=== PATIENT | male | born 1945 | race Caucasian/White ===

== ENCOUNTER 2021-11-12 14:23 | Observation (INO) ==
--- NOTE | 2021-11-12 15:02 | Emergency Department Note ---
Impression & Plan Pulmonary embolism, Sinus tachycardia, Hypertension, Bilateral numbness and tingling of arms and legs ED Provider Note NAME: DAINA STOVER AGE: 76 SEX: M : 1945 ARRIVES VIA: Walk-In INFORMANT: Patient, ED PROVIDER(S): Cristobal Tan DO CHIEF COMPLAINT: Generalized weakness HPI: The patient is a 76-year-old male who presented to the emergency department for an evaluation of generalized weakness. The patient started to describe problems with ambulation. He states has been having problems with his balance for many years but since the last 4 weeks has been noticing tingling in his hands and feet. He notices dysesthesias in both lower extremities. He has had no chest pain or difficulty breathing. He does complain of generalized weakness which sometimes worsen with exertion. He has a remote history of colon cancer and has a history of an ostomy. He denies having any black or bloody stool. He states that he does not have a history of venous thromboembolic disease. He notices no swelling in his legs. He does not have a doctor locally and takes no medications although he thinks he was diagnosed with hypertension at one time. He does not drink alcohol often. ROS: See above HPI for pertinent positives & negatives. A total of 10 systems reviewed and were otherwise negative. PAST MEDICAL HISTORY: See Below PAST SURGICAL HISTORY: See Below FAMILY HISTORY: See Below SOCIAL HISTORY: See Below HOME MEDICATIONS: See Below ALLERGIES: See Below VITALS: See Below PHYSICAL EXAMINATION: GENERAL: The patient is awake and alert. He is somewhat anxious appearing. EYES: The conjunctivae are clear. The pupils are round and reactive. EARS, NOSE, MOUTH AND THROAT: The nose is without any evidence of any deformity. NECK: The neck is nontender and supple. RESPIRATORY: Diminished breath sounds are noted in the left lung field. There is no tachypnea or conversational dyspnea. CARDIOVASCULAR: Tachycardic rate with regular rhythm was noted. There is no definite murmur. GASTROINTESTINAL: The abdomen is soft. Abdomen is nontender. BACK: No midline tenderness or or step-off noted range of motion in flexion extension as well as rotation no signs of muscle spasm noted MUSCULOSKELETAL/EXTREMITIES: There is no evidence of gross deformity full range of motion is noted in the hips and shoulders. SKIN: Skin was warm and dry. There is no significant edema. Pulses were symm etric in both feet NEUROLOGIC: Patient is awake alert and oriented x3. Patient is tremulous in arpita th upper extremities but chip washer strengths are symmetric. He is able to hold each leg off the bed for greater than 5 seconds. MEDICAL DECISION MAKING: The patient is a 76-year-old male who presented to the emergency department for an evaluation of lower extremity tingling and for tachycardia. The patient does not have a family doctor locally. He does have a remote history of colon cancer which was treated with ostomy. I discussed patient's laboratory and radiographic studies with him. He was found to have persistent tachycardia. For this reason CT of the chest was obtained. This appears to be consistent with chronic pulmonary emboli. He has no recollection of having this diagnosis. I discussed the patient's laboratory and radiographic studies with him. He has no primary care physician. I was concerned with his other abnormalities includi ng hypertension and tachycardia. For this reason I discussed patient's condition with the on-call [facility]. Triage Nursing notes reviewed. Prior medical records reviewed Vital Signs: reviewed and remarkable for tachycardia and hypertension. Differential diagnosis: Infection, dehydration, metabolic abnormality, hypo/hyperglycemia, electrolyte disturbance, anemia, hypoxia, cardiac sources, intracerebral event, toxicologic, neurologic, as well as other pathologies. ER treatment provided: See below Diagnostics interpreted by me: ECG: EKG was obtained in the emergency department. My interpretation is sinus tachycardia 121 bpm. There is no ectopy. There is no acute ST segment abnormalities noted. No previous tracing was available. Cardiac Monitoring: An order was placed for continuous cardiac monitoring. The monitor shows a rate of 102 bpm with sinus rhythm. Laboratory studies: As stated above and show below. Imaging studies: See below Consultation(s): I discussed this case with Hayder who is on for the [facility]. Past Med/Surg History Medical History Colon cancer Hypertension Parkinson disease Surgical History History of colostomy Social History Smoking Status: Never smoker Preferred Language: Thai Feels Safe at Home: Yes Allergies Allergies Allergy/AdvReac Type Severity Reaction Status Date / Time No Known Allergies Allergy Unverified 11/12/21 17:20 Home Meds Home Medications Medication Instructions Recorded Confirmed multivitamin (Multiple Vitamins) 1 tab PO DAILY 11/12/21 11/12/21 zinc gluconate 100 mg tablet 200 mg PO DAILY 11/12/21 11/12/21 Results & Data (ED) Vital Signs Vital Signs - 24 hr 11/12/21 14:24 11/12/21 14:25 11/12/21 15:07 Temperature 36.5 C Temperature Source Temporal Artery Scan Pulse Rate 139 H Respiratory Rate 14 18 Respiratory Effort / Characteristics Non-Labored Respiratory Depth Normal Normal Respiratory Pattern Regular Blood Pressure 200/121 H Blood Pressure Mean 147 Pulse Oximetry 98 96 Oxygen Delivery Method Room Air Room Air Sepsis Recent Fever Within 48 Hours No Sepsis New/Unexplained Change in Mental Status No Sepsis Action Taken by Nursing No Action Required Home Medications Current Medication List: was personally reviewed by me Laboratory Data Attestation: I reviewed the patient's lab results. Result diagrams: 11/12/21 15:30 11/12/21 15:30 Lab Results 11/12/21 11/12/21 11/12/21 Range/Units 15:30 15:30 15:30 WBC 8.66 (4.8-10.8) K/uL RBC 4.87 (4.7-6.1) M/uL Hgb 15.9 (14.0-18.0) g/dL Hct 44.5 (42-52) % MCV 91.4 (80-100) fL MCH 32.6 (25-34) pg MCHC 35.7 (32-36) g/dL RDW Std Deviation 42.4 (36.4-46.3) fL RDW Coeff of Steffi 12.6 (11.5-14.5) % Plt Count 230 (130-400) K/uL MPV 11.6 H (7.4-10.4) fL Immature Gran % (Auto) 0.2 % Neut % (Auto) 76.5 % Lymph % (Auto) 15.0 % Toombs % (Auto) 7.4 % Eos % (Auto) 0.6 % Baso % (Auto) 0.3 % Neut # (Auto) 6.62 H (1.4-6.5) K/uL Lymph # (Auto) 1.30 (1.2-3.4) K/uL Toombs # (Auto) 0.64 H (0.11-0.59) K/uL Eos # (Auto) 0.05 (0-0.5) K/uL Baso # (Auto) 0.03 (0-0.2) K/uL Immature Gran # (Auto) 0.02 (0.00-0.02) K/uL PT 10.9 (9.0-12.0) Seconds INR 1.0 (0.9-1.1) APTT 25.5 (21.0-31.0) Seconds PTT Ratio 0.9 D-Dimer (0-500) ug/L FEU Sodium (136-145) mmol/L Potassium (3.5-5.1) mmol/L Chloride (98-107) mmol/L Carbon Dioxide (21-32) mmol/L Anion Gap (3-11) BUN (6-23) mg/dl Creatinine (0.6-1.4) mg/dl Est Cr Clr Drug Dosing ml/min Est GFR ( Amer) ml/min Est GFR (Non-Af Amer) ml/min BUN/Creatinine Ratio (10-20) Glucose (70-99(Fasting)) mg/dl Calcium (8.5-10.1) mg/dl Magnesium (1.7-2.4) mg/dl Total Bilirubin (0.2-1.0) mg/dl AST (13-39) U/L ALT (7-52) U/L Alkaline Phosphatase (34-104) U/L Total Creatine Kinase (30-223) U/L Troponin I High Sens 8.6 (0-20) pg/ml Total Protein (6.0-8.3) gm/dl Albumin (3.4-5.0) gm/dl Globulin (2.5-4.0) gm/dl Albumin/Globulin Ratio (0.9-2) TSH (0.300-4.500) uIu/ml Free T4 (0.61-1.60) ng/dl 11/12/21 11/12/21 11/12/21 Range/Units 15:30 15:30 15:30 WBC (4.8-10.8) K/uL RBC (4.7-6.1) M/uL Hgb (14.0-18.0) g/dL Hct (42-52) % MCV (80-100) fL MCH (25-34) pg MCHC (32-36) g/dL RDW Std Deviation (36.4-46.3) fL RDW Coeff of Steffi (11.5-14.5) % Plt Count (130-400) K/uL MPV (7.4-10.4) fL Immature Gran % (Auto) % Neut % (Auto) % Lymph % (Auto) % Toombs % (Auto) % Eos % (Auto) % Baso % (Auto) % Neut # (Auto) (1.4-6.5) K/uL Lymph # (Auto) (1.2-3.4) K/uL Toombs # (Auto) (0.11-0.59) K/uL Eos # (Auto) (0-0.5) K/uL Baso # (Auto) (0-0.2) K/uL Immature Gran # (Auto) (0.00-0.02) K/uL PT (9.0-12.0) Seconds INR (0.9-1.1) APTT (21.0-31.0) Seconds PTT Ratio D-Dimer 260 (0-500) ug/L FEU Sodium 134 L (136-145) mmol/L Potassium 3.9 (3.5-5.1) mmol/L Chloride 100 (98-107) mmol/L Carbon Dioxide 22 (21-32) mmol/L Anion Gap 12 H (3-11) BUN 12 (6-23) mg/dl Creatinine 0.94 (0.6-1.4) mg/dl Est Cr Clr Drug Dosing 72.1 ml/min Est GFR ( Amer) 91.6 ml/min Est GFR (Non-Af Amer) 79.0 ml/min BUN/Creatinine Ratio 12.8 (10-20) Glucose 280 H (70-99(Fasting)) mg/dl Calcium 9.7 (8.5-10.1) mg/dl Magnesium 1.8 (1.7-2.4) mg/dl Total Bilirubin 1.0 (0.2-1.0) mg/dl AST 76 H (13-39) U/L ALT 90 H (7-52) U/L Alkaline Phosphatase 124 H (34-104) U/L Total Creatine Kinase 54 (30-223) U/L Troponin I High Sens (0-20) pg/ml Total Protein 7.3 (6.0-8.3) gm/dl Albumin 4.2 (3.4-5.0) gm/dl Globulin 3.1 (2.5-4.0) gm/dl Albumin/Globulin Ratio 1.4 (0.9-2) TSH 5.594 H (0.300-4.500) uIu/ml Free T4 0.87 (0.61-1.60) ng/dl Administered Medications Discontinued Medications Ioversol (Optiray 320 125ml) 118 ml IV ONCE ONE Stop: 11/12/21 17:41 Last Admin: 11/12/21 17:41 Dose: 118 ml Documented by: [id number] Lorazepam (Lorazepam 2 Mg/1 Ml Vial) 1 mg IV NOW STA Stop: 11/12/21 15:08 Last Admin: 11/12/21 15:51 Dose: 1 mg Documented by: [id number] Imaging Data Radiologist's Impression: Chest X-Ray 11/12/21 15:07 XR chest 1V portable HISTORY: 76 years-old Male weakness acute weakness COMPARISON: None TECHNIQUE: Portable AP view of the chest FINDINGS: The cardiac silhouette is mildly enlarged. Hiatal hernia. No pneumothorax, pleural effusion, airspace consolidation or overt pulmonary edema. Degenerative changes of the shoulders and spine. IMPRESSION: No acute process. ACT 112: Negative or not required by law. The above report was generated using voice recognition software. It may contain grammatical, syntax or spelling errors. Electronically signed by: Jony Asher M.D. 11/12/2021 3:18 PM Abdomen/Pelvis CT 11/12/21 16:56 CT OF THE ABDOMEN AND PELVIS WITH CONTRAST CLINICAL HISTORY: elevated LFTS COMPARISON STUDY: None. TECHNIQUE: Following IV administration of 118 mL of Optiray, axial images of the abdomen and pelvis were obtained from the lung bases to the proximal femurs. Images were reviewed in the axial, sagittal, and coronal planes. IV contrast was administered without complication. Automated exposure control was utilized for the study. A dose lowering technique was utilized adhering to the principles of ALARA. CT DOSE: 2766.72 mGy.cm FINDINGS: No pneumatosis, free air or portal venous gas is present. No suspicious hepatic lesions are present. Segment 8 hepatic calcifications are present. There is no biliary or pancreatic ductal dilatation. No peripancreatic or pericholecystic infiltration is present. There is possible hepatic steatosis. 1 cm hypodense splenic lesion is likely benign. A 1.7 cm lesion within the midpole of the right kidney measures above water attenuation although probably reflects a cyst. There is no hydronephrosis. Major vasculature is patent. There is no ascites. Postoperative findings from a distal colonic and rectal resection are noted with a descending colostomy. Parastomal hernia contains multiple small bowel loops without resultant bowel obstruction. Mild asymmetric wall thickening of the left lateral bladder wall is present. There is suspected hypertrophy of the median lobe of the prostate. No fluid collection is suggest an abscess. The appendix is normal. There is a possible 3 mm left renal calculus. There are no ureteral calculi and there is no hydronephrosis. IMPRESSION: 1. No acute process within the abdomen or pelvis. 2. Status post distal colonic and rectal resection with descending colostomy. Parastomal hernia contains multiple small bowel loops without resultant bowel obstruction. 3. Mild asymmetric left lateral bladder wall thickening. This could be correlat ed with urinalysis and urine cytology. Cystoscopy could be obtained as indicated. 4. ACT 112: Negative or not required by law. Electronically signed by: Alexi Chang M.D. 11/12/2021 6:[address] 11/12/21 16:56 CT OF THE CERVICAL SPINE WITHOUT CONTRAST CLINICAL HISTORY: off balance COMPARISON STUDY: No previous studies for comparison. TECHNIQUE: Helical axial images of the cervical spine were obtained without IV contrast. Sagittal and coronal reconstructions were viewed. Automated exposure control was utilized for the study. A dose lowering technique was utilized adhering to the principles of ALARA. FINDINGS: Alignment of the cervical spine is anatomic. Vertebral body heights are maintained. No acute cervical spine fracture or subluxation is present. There is no prevertebral edema. Facet joints are intact. Moderate disc space narrowing is noted at C6-C7. Several thyroid nodules are incidentally noted. IMPRESSION: 1. No acute cervical spine fracture or subluxation. 2. Moderate multilevel degenerative disc disease, most pronounced at C6-C7. Suboptimal evaluation of the central canal neural foramen given CT technique. ACT 112: Negative or not required by law. Electronically signed by: Alexi Chang M.D. 11/12/2021 5:48 PM Chest CTA 11/12/21 16:56 CT ANGIOGRAPHY OF THE CHEST, PULMONARY EMBOLUS PROTOCOL CLINICAL HISTORY: Shortness of breath. Evaluate for pulmonary embolus. COMPARISON STUDY: Chest radiograph performed earlier today. TECHNIQUE: Following IV administration of 118 mL of Optiray, helical axial images of the chest were obtained utilizing the pulmonary embolus protocol. Maximal intensity projections and sagittal and coronal reformats were viewed on an independent 3D workstation. IV contrast was administered without c omplication. Automated exposure control was utilized for the study. A dose lowering technique was utilized adhering to the principles of ALARA. FINDINGS: Several linear filling defects are identified within the right lower lobe pulmonary arteries. There are also linear filling defects within the distal right pulmonary artery. These favor chronic pulmonary emboli. No evidence for acute pulmonary emboli. Mild cardiomegaly is noted. There is no thoracic aortic dissection. No enlarged thoracic lymph nodes are present. There is no pericardial effusion. No pneumothorax or pleural effusion is present. There is no consolidation to suggest pneumonia. Mild elevation of the right hemidiaphragm is noted. Adjacent airspace opacity reflects atelectasis. IMPRESSION: 1. Several small linear filling defects within right-sided pulmonary arteries which favor chronic pulmonary emboli. No convincing evidence for acute pulmonary emboli. 2. Mild cardiomegaly. 3. No consolidation to suggest pneumonia. ACT 112: Negative or not required by law. Electronically signed by: Alexi Chang M.D. 11/12/2021 5:[address] 11/12/21 16:56 CT OF THE HEAD WITHOUT CONTRAST CLINICAL HISTORY: off balance COMPARISON STUDY: No previous studies for comparison. TECHNIQUE: Helical axial images of the head were obtained without IV contrast. Automated exposure control was utilized for the study. A dose lowering technique was utilized adhering to the principles of ALARA. FINDINGS: No acute intracranial hemorrhage, midline shift or mass effect is present. 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 White matter hypodensity suggests small vessel disease. The ventricular system is unremarkable. The basal cisterns are patent. No extra-axial collections are present. There are no findings to suggest acute dural sinus thrombosis or acute territorial infarct. No significant calvarial abnormalities are present. Visualized portions of the sinuses and mastoid air cells are clear. IMPRESSION: No acute intracranial findings. ACT 112: Negative or not required by law. Electronically signed by: Alexi Chang M.D. 11/12/2021 5:45 PM Discharge Plan Visit Data Chief Complaint: Leg Weakness, Bilateral Stated Complaint: LEGS AND FEET AND HANDS ARE TINGLING ED Provider: Cristobal Tan Discharge Problem: Pulmonary embolism, Sinus tachycardia, Hypertension, Bilateral numbness and tingling of arms and legs Patient Disposition: Being Evaluated by Hospitalist Forms Stand Alone Forms: [facility] Prescriptions Prescriptions: No Action multivitamin [Multiple Vitamins] Tablet 1 tab PO DAILY RF: 0 zinc gluconate [Zinc Natural] 100 mg Tablet 200 mg PO DAILY RF: 0 Referrals Referrals: PCP,NO [Primary Care Provider] -
[2021-11-12] MEDS ORDERED: LORazepam 2 MG/1 ML VIAL IV STA (15:07)
--- NOTE | 2021-11-12 15:20 | XRay Report ---
XR chest 1V portable HISTORY: 76 years-old Male weakness acute weakness COMPARISON: None TECHNIQUE: Portable AP view of the chest FINDINGS: The cardiac silhouette is mildly enlarged. Hiatal hernia. No pneumothorax, pleural effusion, airspace consolidation or overt pulmonary edema. Degenerative changes of the shoulders and spine. IMPRESSION: No acute process. ACT 112: Negative or not required by law. The above report was generated using voice recognition software. It may contain grammatical, syntax o r spelling errors. Electronically signed by: Jony Asher M.D. 11/12/2021 3:18 PM
[2021-11-12 15:56] LABS: Basophils # (auto) 0.03 K/uL (0-0.2); Basophils % (auto) 0.3 %; Eosinophils # (auto) 0.05 K/uL (0-0.5); Eosinophils % (auto) 0.6 %; Hematocrit (blood only) 44.5 % (42-52); Hemoglobin 15.9 g/dL (14.0-18.0); Immature Granulocytes # (auto) 0.02 K/uL (0.00-0.02); Immature Granulocytes % (auto) 0.2 %; Mean Corpuscular Hemoglobin 32.6 pg (25-34); Mean Corpuscular Hgb Conc 35.7 g/dL (32-36); Mean Corpuscular Volume 91.4 fL (80-100); Mean Platelet Volume 11.6 fL (7.4-10.4); Monocytes # (auto) 0.64 K/uL (0.11-0.59); Monocytes % (auto) 7.4 %; Neutrophils # (auto) 6.62 K/uL (1.4-6.5); Neutrophils % (auto) 76.5 %; Platelet Count 230 K/uL (130-400); RDW Coefficient of Variation 12.6 % (11.5-14.5); RDW Standard Deviation 42.4 fL (36.4-46.3); Red Blood Count 4.87 M/uL (4.7-6.1); White Blood Count 8.66 K/uL (4.8-10.8)
[2021-11-12 16:14] LABS: Partial Thromboplastin Ratio 0.9; Partial Thromboplastin Time 25.5 Seconds (21.0-31.0); Prothrombin Time 10.9 Seconds (9.0-12.0)
[2021-11-12 16:17] LABS: D Dimer 260 ug/L FEU (0-500)
[2021-11-12 16:19] LABS: Albumin Globulin Ratio 1.4 (0.9-2); Albumin Level 4.2 gm/dl (3.4-5.0); BUN Creatinine Ratio 12.8 (10-20); Calcium 9.7 mg/dl (8.5-10.1); Creatinine Clr Calc Pharmacy 72.1 ml/min; Est GFR (African American) 91.6 ml/min; Globulin 3.1 gm/dl (2.5-4.0); Magnesium 1.8 mg/dl (1.7-2.4); Potassium 3.9 mmol/L (3.5-5.1); Total Protein 7.3 gm/dl (6.0-8.3)
[2021-11-12 16:32] LABS: Thyroid Stimulating Hormone 5.594 uIu/ml (0.300-4.500)
[2021-11-12 17:15] LABS: T4 Free Thyroxine 0.87 ng/dl (0.61-1.60)
[2021-11-12] MEDS ORDERED: OPTIRAY 320 125ml IV ONE (17:40)
--- NOTE | 2021-11-12 17:46 | CT Scan Report ---
CT OF THE HEAD WITHOUT CONTRAST CLINICAL HISTORY: off balance COMPARISON STUDY: No previous studies for comparison. TECHNIQUE: Helical axial images of the head were obtained without IV contrast. Automated exposure con trol was utilized for the study. A dose lowering technique was utilized adhering to the principles o f ALARA. FINDINGS: No acute intracranial hemorrhage, midline shift or mass effect is present. Suspected old la cunar infarct within left basal ganglia is present. White matter hypodensity suggests small vessel di sease. The ventricular system is unremarkable. The basal cisterns are patent. No extra-axial collecti ons are present. There are no findings to suggest acute dural sinus thrombosis or acute territorial i nfarct. No significant calvarial abnormalities are present. Visualized portions of the sinuses and ma stoid air cells are clear. IMPRESSION: No acute intracranial findings. ACT 112: Negative or not required by law. Electronically signed by: Alexi Chang M.D. 11/12/2021 5:45 PM
--- NOTE | 2021-11-12 17:50 | CT Scan Report ---
CT OF THE CERVICAL SPINE WITHOUT CONTRAST CLINICAL HISTORY: off balance COMPARISON STUDY: No previous studies for comparison. TECHNIQUE: Helical axial images of the cervical spine were obtained without IV contrast. Sagittal a nd coronal reconstructions were viewed. Automated exposure control was utilized for the study. A do se lowering technique was utilized adhering to the principles of ALARA. FINDINGS: Alignment of the cervical spine is anatomic. Vertebral body heights are maintained. No acut e cervical spine fracture or subluxation is present. There is no prevertebral edema. Facet joints are intact. Moderate disc space narrowing is noted at C6-C7. Several thyroid nodules are incidentally n oted. IMPRESSION: 1. No acute cervical spine fracture or subluxation. 2. Moderate multilevel degenerative disc disease, most pronounced at C6-C7. Suboptimal evaluation of the central canal neural foramen given CT technique. ACT 112: Negative or not required by law. Electronically signed by: Alexi Chang M.D. 11/12/2021 5:48 PM
--- NOTE | 2021-11-12 17:58 | CT Scan Report ---
CT ANGIOGRAPHY OF THE CHEST, PULMONARY EMBOLUS PROTOCOL CLINICAL HISTORY: Shortness of breath. Evaluate for pulmonary embolus. COMPARISON STUDY: Chest radiograph performed earlier today. TECHNIQUE: Following IV administration of 118 mL of Optiray, helical axial images of the chest were o btained utilizing the pulmonary embolus protocol. Maximal intensity projections and sagittal and cor onal reformats were viewed on an independent 3D workstation. IV contrast was administered without co mplication. Automated exposure control was utilized for the study. A dose lowering technique was ut ilized adhering to the principles of ALARA. FINDINGS: Several linear filling defects are identified within the right lower lobe pulmonary arteri es. There are also linear filling defects within the distal right pulmonary artery. These favor chron ic pulmonary emboli. No evidence for acute pulmonary emboli. Mild cardiomegaly is noted. There is no thoracic aortic dissection. No enlarged thoracic lymph nodes are present. There is no pericardial eff usion. No pneumothorax or pleural effusion is present. There is no consolidation to suggest pneumonia . Mild elevation of the right hemidiaphragm is noted. Adjacent airspace opacity reflects atelectasis. IMPRESSION: 1. Several small linear filling defects within right-sided pulmonary arteries which favor chronic pul monary emboli. No convincing evidence for acute pulmonary emboli. 2. Mild cardiomegaly. 3. No consolidation to suggest pneumonia. ACT 112: Negative or not required by law. Electronically signed by: Alexi Chang M.D. 11/12/2021 5:56 PM
--- NOTE | 2021-11-12 18:10 | CT Scan Report ---
CT OF THE ABDOMEN AND PELVIS WITH CONTRAST CLINICAL HISTORY: elevated LFTS COMPARISON STUDY: None. TECHNIQUE: Following IV administration of 118 mL of Optiray, axial images of the abdomen and pelvis w ere obtained from the lung bases to the proximal femurs. Images were reviewed in the axial, sagittal, and coronal planes. IV contrast was administered without complication. Automated exposure control w as utilized for the study. A dose lowering technique was utilized adhering to the principles of ALAR Siri. CT DOSE: 2766.72 mGy.cm FINDINGS: No pneumatosis, free air or portal venous gas is present. No suspicious hepatic lesions are present. Segment 8 hepatic calcifications are present. There is no biliary or pancreatic ductal dila tation. No peripancreatic or pericholecystic infiltration is present. There is possible hepatic steat osis. 1 cm hypodense splenic lesion is likely benign. A 1.7 cm lesion within the midpole of the right kidney measures above water attenuation although probably reflects a cyst. There is no hydronephrosi s. Major vasculature is patent. There is no ascites. Postoperative findings from a distal colonic and rectal resection are noted with a descending colostomy. Parastomal hernia contains multiple small arpita wel loops without resultant bowel obstruction. Mild asymmetric wall thickening of the left lateral bl adder wall is present. There is suspected hypertrophy of the median lobe of the prostate. No fluid co llection is suggest an abscess. The appendix is normal. There is a possible 3 mm left renal calculus. There are no ureteral calculi and there is no hydronephrosis. IMPRESSION: 1. No acute process within the abdomen or pelvis. 2. Status post distal colonic and rectal resection with descending colostomy. Parastomal hernia conta ins multiple small bowel loops without resultant bowel obstruction. 3. Mild asymmetric left lateral bladder wall thickening. This could be correlated with urinalysis and urine cytology. Cystoscopy could be obtained as indicated. 4. ACT 112: Negative or not required by law. Electronically signed by: Alexi Chang M.D. 11/12/2021 6:08 PM
[2021-11-12] MEDS ORDERED: APIXABAN 5 MG TABLET PO STA (19:25)
[2021-11-12] MEDS ORDERED: amLODIPine BESYLATE 5 MG TAB PO ONE (19:38)
--- NOTE | 2021-11-12 19:44 | History & Physical Report ---
Date of Service November 12, 2021 Assessment & Plan (1) Pulmonary embolism: Plan: Presented with hypertension and tachycardia - filling defect likely chronic PE- patient unsure of when this would have occurred - will send hypercoag panel although without family hx and age- this is likely low yield - CT chest without any enlarged lymph nodes or nodules - Abd and pelvis without masses- will send urine cytology with thickened bladder eval for bladder ca - further workup for cancer screening - venous duplex of the lower extremity - Will start on Apixaban 10mg PO x1 now then BID daily (2) Elevated random blood glucose level: Plan: Withoug diagnosis of DM that is known - will start on sliding scale insulin overnight with aspart - HGB A1c in morning - will likely need therapy initiated (3) Sinus tachycardia: Plan: Likely secondary to #1- declines with rest - follow - ECHO in morning to evaluate LVH with significant untreated hypertension - Compensatory likely at this time (4) Hypertension: Plan: Uncontrolled with unkown history - will initiate amlodopine 5mg PO now and in am - evaluate with ECHO - lipid panel - HGB A1 c - adjust therapy based on risks disease modification needs (5) Parkinson disease: Plan: Patient states diagnosed about 10 years ago - will need neurologist as outpatient can consider inpatient consultation (6) Bilateral numbness and tingling of arms and legs: Plan: Multiple etiologies at this time to include- lyme, diabetic neuropathy, b12 deficiency, copper deficiency (takes zinc supplementation), PVD/PAD or other - CT scan of head negative - cervical imaging negative - no back pain or weakness of the lower extremities - TSH 5.5 (7) Elevated liver enzymes: Plan: Unsure of etiology at this time - AST/ALT/ALkPO4 elevated with normal bilirubin and normal CKand lipase - CT abd/pelvis and normal biliary duct - 8 liver calcifications noted - will send anaplasmosis - trend (8) Colon cancer: Plan: History of with colostomy- ~ 17 years ago - has not had any follow up or screenings completed (9) Enlarged prostate: Plan: Noted on CT pelvis - PSA in morning - Urine cytology as above - treatment and referral pending above History of Present Illness Primary Care Provider: NO PCP 76 YOM with past medical history of: Colon Cancer with colostomy -17 years ago, Parkinson's disease. Patient moved to the area to retire and go fishing. He has not set up any PCP care. He comes in to the EMD today for complaints of burning to the soles of his feet, and difficulty with walking, and tingling in his finger tips. In the EMD he was noted to be hypertensive and tachycardic and with his history of colon cancer and above symptoms the patient had CTA of the chest performed, CT abdomen and pelvis, CXR, routine blood work done. He was incidentally found to have filling defect right pulmonary artery with chronic PE, and elevated LFTs as well as elevated glucose. The patient denies any history of chest pain or difficulty breathing. His feet pain have been ongoing for the past 4 weeks with not resolution and also noting increase in cramping pain in his calves. He reports that he used to be on some medication for his Parkinson's disease but hasn't been on it in years. He also has a form from [employer] to be filled out. He also reports that he used to be on blood pressure medication but also can't remember what that is. He does not remember the last time he followed up with GI and reports never having a EGD. Patient will be admitted to start his overall general medical care as well as find a PCP and Neurologist. COVID test on admission is: NEGATIVE Allergies Allergy/AdvReac Type Severity Reaction Status Date / Time No Known Allergies Allergy Unverified 11/12/21 17:20 Home Medications Medication Instructions Recorded Confirmed Type multivitamin (Multiple Vitamins) 1 tab PO DAILY 11/12/21 11/12/21 History zinc gluconate 100 mg tablet 200 mg PO DAILY 11/12/21 11/12/21 History Past Med/Surg History Medical History (Updated 11/13/21 @ 08:52 by Cale Vasquez DO) Colon cancer Elevated random blood glucose level Hypertension Parkinson disease Surgical History History of colostomy Family History (Updated 11/12/21 @ 19:56 by VERONICA Farrell) Other Colorectal cancer Coronary heart disease Diabetes Dyslipidemia Denies family history of Deep vein thrombosis Social History Smoking Status: Never smoker Hx Alcohol Use: No Hx Substance Use: No Preferred Language: Botswanan Communication Ability: Effective Program Manager Required: No Beliefs That Will Affect Care: None Current Living Situation: Alone Current Living Situation Comment: alone Other Information That Helps Us Care for You: No Feels Safe at Home: Yes Assistive Devices: None Review of Systems Review of Systems: REVIEW OF SYSTEMS: Constitutional: No fever, sweats or chills Eyes: No diplopia, no worsening or blurred vision ENT: (+) right ear pain, normal hearing, no trouble swallowing Respiratory: No cough, sputum, dyspnea at rest or on exertion Cardiovascular: No chest pain, tightness or palpitations Abdomen: (+) colostomy, No pain, nausea, vomiting, diarrhea or constipation Musculoskeletal: (+) bilateral feet burning and weakness, leg cramps, joint pain, calf pain, swelling Neurologic:(+) tingling to right first 3 fingertips, No weakness, numbness/tingling, or balance problems Psychiatric: No anxiety or depression Skin: No rash or itch Physical Exam Physical Exam: PHYSICAL EXAM: General: awake, alert, no apparent distress Head: Normocephalic, atraumatic ENT: PERRL, EOMI, no pharyngeal exudate, mucous membranes moist Neuro: AAO x 3, speech clear and appropriate, strength intact bilaterally 5/5, sensation intact and equal all extremities and dermatomes, no pronator drift, slight tremor of right hand Chest: equal rise and fall of the chest, no accessory muscle use, no heaves or thrills, Clear to auscultation, on room air, Cardiac: Regular rate and rhythm, telemetry reviewed- sinus tachycardia, skin warm dry, cap refill <3 seconds, peripheral pulses +2 no JVD, no murmur, no edema GI: NABS, soft, nontender to palpation, colostomy, no rebound, guarding or tenderness : Spontaneously voiding, no pain, no CVA tenderness Extremities: Normal inspection, no peripheral edema or erythema, calfs nontender to palpation, but pain with walking and cramping Psych: Normal mood and affect Skin: no rash or erythema Results & Data Results & Data ([facility]) Vital Signs (Past 12 Hours) Vital Signs Temp Pulse Resp BP Pulse Ox 11/12/21 15:07 96 11/12/21 14:25 36.5 C 139 H 18 200/121 H 98 11/12/21 14:24 14 Laboratory Results Abnormal lab results 11/12/21 11/12/21 11/12/21 Range/Units 15:30 15:30 15:30 MPV 11.6 H (7.4-10.4) fL Neut # (Auto) 6.62 H (1.4-6.5) K/uL [place] # (Auto) 0.64 H (0.11-0.59) K/uL Sodium 134 L (136-145) mmol/L Anion Gap 12 H (3-11) Glucose 280 H (70-99(Fasting)) mg/dl AST 76 H (13-39) U/L ALT 90 H (7-52) U/L Alkaline Phosphatase 124 H (34-104) U/L TSH 5.594 H (0.300-4.500) uIu/ml Diagnostic Findings Chest X-Ray 11/12/21 15:07 XR chest 1V portable HISTORY: 76 years-old Male weakness acute weakness COMPARISON: None TECHNIQUE: Portable AP view of the chest FINDINGS: The cardiac silhouette is mildly enlarged. Hiatal hernia. No pneumothorax, pleural effusion, airspace consolidation or overt pulmonary edema. Degenerative changes of the shoulders and spine. IMPRESSION: No acute process. ACT 112: Negative or not required by law. The above report was generated using voice recognition software. It may contain grammatical, syntax or spelling errors. Electronically signed by: Jony Asher M.D. 11/12/2021 3:18 PM Abdomen/Pelvis CT 11/12/21 16:56 CT OF THE ABDOMEN AND PELVIS WITH CONTRAST CLINICAL HISTORY: elevated LFTS COMPARISON STUDY: None. TECHNIQUE: Following IV administration of 118 mL of Optiray, axial images of the abdomen and pelvis were obtained from the lung bases to the proximal femurs. Images were reviewed in the axial, sagittal, and coronal planes. IV contrast was administered without complication. Automated exposure control was utilized for the study. A dose lowering technique was utilized adhering to the principles of ALARA. CT DOSE: 2766.72 mGy.cm FINDINGS: No pneumatosis, free air or portal venous gas is present. No suspicious hepatic lesions are present. Segment 8 hepatic calcifications are present. There is no biliary or pancreatic ductal dilatation. No peripancreatic or pericholecystic infiltration is present. There is possible hepatic steatosis. 1 cm hypodense splenic lesion is likely benign. A 1.7 cm lesion within the midpole of the right kidney measures above water attenuation although probably reflects a cyst. There is no hydronephrosis. Major vasculature is patent. There is no ascites. Postoperative findings from a distal colonic and rectal resection are noted with a descending colostomy. Parastomal hernia contains multiple small bowel loops without resultant bowel obstruction. Mild asymmetric wall thickening of the left lateral bladder wall is present. There is suspected hypertrophy of the median lobe of the prostate. No fluid collection is suggest an abscess. The appendix is normal. There is a possible 3 mm left renal calculus. There are no ureteral calculi and there is no hydronephrosis. IMPRESSION: 1. No acute process within the abdomen or pelvis. 2. Status post distal colonic and rectal resection with descending colostomy. Parastomal hernia contains multiple small bowel loops without resultant bowel obstruction. 3. Mild asymmetric left lateral bladder wall thickening. This could be correlated with urinalysis and urine cytology. Cystoscopy could be obtained as indicated. 4. ACT 112: Negative or not required by law. Electronically signed by: Alexi Chang M.D. 11/12/2021 6:[address] 11/12/21 16:56 CT OF THE CERVICAL SPINE WITHOUT CONTRAST CLINICAL HISTORY: off balance COMPARISON STUDY: No previous studies for comparison. TECHNIQUE: Helical axial images of the cervical spine were obtained without IV contrast. Sagittal and coronal reconstructions were viewed. Automated exposure control was utilized for the study. A dose lowering technique was utilized adhering to the principles of ALARA. FINDINGS: Alignment of the cervical spine is anatomic. Vertebral body heights are maintained. No acute cervical spine fracture or subluxation is present. There is no prevertebral edema. Facet joints are intact. Moderate disc space narrowing is noted at C6-C7. Several thyroid nodules are incidentally noted. IMPRESSION: 1. No acute cervical spine fracture or subluxation. 2. Moderate multilevel degenerative disc disease, most pronounced at C6-C7. Suboptimal evaluation of the central canal neural foramen given CT technique. ACT 112: Negative or not required by law. Electronically signed by: Alexi Chang M.D. 11/12/2021 5:48 PM Chest CTA 11/12/21 16:56 CT ANGIOGRAPHY OF THE CHEST, PULMONARY EMBOLUS PROTOCOL CLINICAL HISTORY: Shortness of breath. Evaluate for pulmonary embolus. COMPARISON STUDY: Chest radiograph performed earlier today. TECHNIQUE: Following IV administration of 118 mL of Optiray, helical axial images of the chest were obtained utilizing the pulmonary embolus protocol. Maximal intensity projections and sagittal and coronal reformats were viewed on an independent 3D workstation. IV contrast was administered without complication. Automated exposure control was utilized for the study. A dose lowering technique was utilized adhering to the principles of ALARA. FINDINGS: Several linear filling defects are identified within the right lower lobe pulmonary arteries. There are also linear filling defects within the distal right pulmonary artery. These favor chronic pulmonary emboli. No evidence for acute pulmonary emboli. Mild cardiomegaly is noted. There is no thoracic aortic dissection. No enlarged thoracic lymph nodes are present. There is no pericardial effusion. No pneumothorax or pleural effusion is present. There is no consolidation to suggest pneumonia. Mild elevation of the right hemidiaphragm is noted. Adjacent airspace opacity reflects atelectasis. IMPRESSION: 1. Several small linear filling defects within right-sided pulmonary arteries which favor chronic pulmonary emboli. No convincing evidence for acute pulmonary emboli. 2. Mild cardiomegaly. 3. No consolidation to suggest pneumonia. ACT 112: Negative or not required by law. Electronically signed by: Alexi Chang M.D. 11/12/2021 5:[address] 11/12/21 16:56 CT OF THE HEAD WITHOUT CONTRAST CLINICAL HISTORY: off balance COMPARISON STUDY: No previous studies for comparison. TECHNIQUE: Helical axial images of the head were obtained without IV contrast. Automated exposure control was utilized for the study. A dose lowering technique was utilized adhering to the principles of ALARA. FINDINGS: No acute intracranial hemorrhage, midline shift or mass effect is present. 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 White matter hypodensity suggests small vessel disease. The ventricular system is unremarkable. The basal cisterns are patent. No extra-axial collections are present. There are no findings to suggest acute dural sinus thrombosis or acute territorial infarct. No significant calvarial abnormalities are present. Visualized portions of the sinuses and mastoid air cells are clear. IMPRESSION: No acute intracranial findings. ACT 112: Negative or not required by law. Electronically signed by: Alexi Chang M.D. 11/12/2021 5:45 PM Medications Administered Home Medications multivitamin (Multiple Vitamins) 1 tab PO DAILY 11/12/21 [History Confirmed 11/12/21] zinc gluconate 100 mg tablet 200 mg PO DAILY 11/12/21 [History Confirmed 11/12/21] Active Medications Amlodipine Besylate (Amlodipine Besylate 5 Mg Tab) 5 mg PO QAM CARO Stop: 12/13/21 08:59 Discontinued Medications Ioversol (Optiray 320 125ml) 118 ml IV ONCE ONE Stop: 11/12/21 17:41 Last Admin: 11/12/21 17:41 Dose: 118 ml Documented by: [id number] Lorazepam (Lorazepam 2 Mg/1 Ml Vial) 1 mg IV NOW STA Stop: 11/12/21 15:08 Last Admin: 11/12/21 15:51 Dose: 1 mg Documented by: [id number] ECG Additional Comments: Sinus tachycardia Minimal voltage criteria for LVH, may be normal variant Borderline ECG No previous ECGs available Code Status & VTE Plan Code Status CODE: DNRI/DNI VTE: SCDS, Apixaban 10mg po BID VTE Prophylaxis Plan VTE Prophylaxis will be ordered: Yes Supervising Physician Co-Signing Physician Notes Patient seen and examined at bedside. Performed a history and physical examination during face to face encounter. I discussed plan of care with AIDE Ayers and patient. I reviewed above note and agree with it. Patient is diagnosed with pulmonary emboli. Patient will be placed on anticoagulation. In regards to his BP, will add amlodipine. PG Care Time/CCT Total # of Minutes Spent Total Time Spent with Patient: Total time spent is greater than 50% in coordination of care (as documented) at patient's floor/unit and/or counseling patient: Coding Level of Care Code 50029 Initial Inpt Care Lvl 3 Diagnoses Pulmonary embolism I27.82 Acute cor pulmonale presence: unspecified Chronicity: chronic Pulmonary embolism type: unspecified Elevated random blood glucose level R73.09 Sinus tachycardia R00.0 Hypertension I10 Hypertension type: unspecified Bilateral numbness and tingling of arms and legs R20.0; R20.2 Parkinson disease G20 Elevated liver enzymes R74.8 Colon cancer C18.9 Enlarged prostate N40.0 (1) Pulmonary embolism Acute cor pulmonale presence: unspecified Chronicity: chronic Pulmonary embolism type: unspecified Qualified Code(s): I27.82 - Chronic pulmonary embolism (2) Hypertension Hypertension type: unspecified Qualified Code(s): I10 - Essential (primary) hypertension
[2021-11-12 20:41] LABS: Appearance Urine Clear (Clear); Bilirubin Urine Negative (Negative); Blood Urine Negative (Negative); Color Urine Yellow; Glucose Urine UA 2+ (Negative); Ketones Urine Trace (Negative); Leukocyte Esterase Urine Negative (Negative); Nitrite Urine Negative (Negative); Protein Urine Negative (Negative); Specific Gravity Urine > 1.045 (1.000-1.030); Urobilinogen Urine Negative (Negative)
[2021-11-12 21:11] LABS: Lyme Ab IgM w/WB Rflx Negative (Negative)
[2021-11-12 22:06] LABS: Lyme Ab IgG w/WB Rflx Positive (Negative)
[2021-11-12] MEDS ORDERED: GLUCOSE 40% GEL 15 GM TUBE PO PRN (22:27)
[2021-11-12] MEDS ORDERED: GLUCAGON FOR INJ 1 MG VIAL SQ PRN (22:27)
[2021-11-12] MEDS ORDERED: ONDANSETRON INJ 2 MG/ML 2 ML VIAL IV PRN (22:27)
[2021-11-12] MEDS ORDERED: ACETAMINOPHEN 325 MG TAB PO PRN (22:27)
[2021-11-12] MEDS ORDERED: DEXTROSE 50% 50 ML SYRINGE IV PRN (22:27)
[2021-11-12] MEDS ORDERED: GLUCOSE 10 TABS/TUBE PO PRN (22:27)
[2021-11-12] MEDS ORDERED: CARBOHYDRATES FOR HYPOGLYCEMIA PO PRN (22:27)
[2021-11-12] MEDS: INSULIN ASPART PER UNIT SC SCH (23:57)
[2021-11-13 00:38] LABS: Iron 91 mcg/dl (35-175); Total Iron Binding Cap Calc 417 mcg/dl (250-450); Transferrin (FE) Percent Satur 22 % (20-50); Unsaturated Iron Binding Cap 326 mcg/dl (155-355)
--- NOTE | 2021-11-13 06:33 | Ultrasound Report ---
BILATERAL LOWER EXTREMITY VENOUS DOPPLER HISTORY: Follow up study in a patient with shortness of breath and pulmonary emboli chronic pe incid ental- eval for DVT COMPARISON STUDY: CTA chest 11/12/2021. FINDINGS: There is normal compressibility, flow, and augmentation within the bilateral lower extremit y deep venous systems. IMPRESSION: No DVT within the right or left lower extremity. ACT 112: Negative or not required by law. Electronically signed by: Jony Asher M.D. 11/13/2021 6:32 AM
[2021-11-13] MEDS ORDERED: APIXABAN 2.5 MG TAB PO SCH (08:00)
[2021-11-13] MEDS ORDERED: APIXABAN 5 MG TABLET PO SCH (08:00)
[2021-11-13 08:17] LABS: Basophils # (auto) 0.03 K/uL (0-0.2); Basophils % (auto) 0.4 %; Eosinophils # (auto) 0.17 K/uL (0-0.5); Eosinophils % (auto) 2.3 %; Hematocrit (blood only) 44.8 % (42-52); Hemoglobin 15.6 g/dL (14.0-18.0); Immature Granulocytes # (auto) 0.03 K/uL (0.00-0.02); Immature Granulocytes % (auto) 0.4 %; Lymphocytes % (auto) 20.1 %; Mean Corpuscular Hemoglobin 31.5 pg (25-34); Mean Corpuscular Hgb Conc 34.8 g/dL (32-36); Mean Corpuscular Volume 90.5 fL (80-100); Mean Platelet Volume 11.2 fL (7.4-10.4); Monocytes # (auto) 0.92 K/uL (0.11-0.59); Monocytes % (auto) 12.3 %; Neutrophils % (auto) 64.5 %; Platelet Count 208 K/uL (130-400); RDW Coefficient of Variation 12.8 % (11.5-14.5); RDW Standard Deviation 42.3 fL (36.4-46.3); Red Blood Count 4.95 M/uL (4.7-6.1); White Blood Count 7.45 K/uL (4.8-10.8)
[2021-11-13] MEDS ORDERED: amLODIPine BESYLATE 5 MG TAB PO SCH (09:00)
[2021-11-13 09:02] LABS: Ferritin 212.9 ng/ml (8-388)
[2021-11-13 09:06] LABS: Estimated Average Glucose 260 mg/dl; Hemoglobin A1C 10.7 % (4.5-5.6)
[2021-11-13 09:07] LABS: Folate (Folic Acid) > 22.30 ng/ml (>5.38)
[2021-11-13 09:08] LABS: Vitamin B12 317 pg/ml (180-914)
[2021-11-13 09:15] LABS: BUN Creatinine Ratio 14.8 (10-20); Calcium 9.4 mg/dl (8.5-10.1); Chol HDL Ratio 6.1 (0-5); Creatinine Clr Calc Pharmacy 76.7 ml/min; Est GFR (African American) 97.4 ml/min; Magnesium 1.9 mg/dl (1.7-2.4); Potassium 3.8 mmol/L (3.5-5.1)
[2021-11-13] MEDS: INSULIN ASPART PER UNIT SC SCH ×3 (09:52→17:47)
--- NOTE | 2021-11-13 10:57 | Hospitalist Progress Note ---
Date of Service November 13, 2021 Assessment & Plan (1) Pulmonary embolism: Plan: 76 yo M with a PMH of colon cancer s/p colostomy and Parkinson's with no routine medical care who presented with 4 weeks of burning in his hands and feet, hypertension, and tachycardia, incidentally found to have a chronic pulmonary emboli and new diagnosis of DM2. Diabetes -On arrival to the ED, POC glucose was 306 -Started on sliding scale insulin with Aspart - A1C 10.7% - Consult placed with Surgical Orderly - On discharge, start new diabetes regimen - 10 units of Lantus 1x a day - Start Metformin 500mg BID - Start Olmarsartan 20 mg daily - Start Atorvastatin 40 mg daily - Start Pregabalin 75 mg BID Chronic PE - On Chest CTA in the ED, noted filling defect likely chronic PE- patient unsure of when this would have occurred - CT Chest without any enlarged lymph nodes, nodules, or masses - Hypercoag panel pending although without family hx and age - Venous duplex of LE revealed no acute DVT - Started on Apixaban 10 mg PO in the ED x1 then BID daily - Recommend 7 days of Apixiban 10 mg PO BID, then 3 months of 5 mg PO BID Bilateral burning of feet and fingers -Highly suspect diabetic neuropathy secondary to uncontrolled diabetes (A1C 10.7%) -Initial etiologies included- lyme, diabetic neuropathy, polyneuropathy, b12 deficiency, copper deficiency (takes zinc supplementation), PVD/PAD all less likely given time course, physical exam, and underlying diabetes. -Lyme IgG antibody positive; bands pending -B12 normal -Copper level pending -Anti-cardiolipin IgM, IgG pending -PVD/PAD less likely given physical exam and doppler study -All other imaging negative for disc disease, [employer] lesions, demyelinating lesions -No back pain or weakness of the lower extremities -Recommend Pregabalin initiation for neuropathic symptoms at 25 mg daily Tachycardia resolved -Likely secondary to anxiety- declines with rest, has declined upon admission -Through out hospitalization, HR has hovered 75-90 Hypertension -Uncontrolled with unknown history -200/121 on arrival to the ED -Amlodopine 5mg PO initiated in ED and during hospital course -Lipid panel revealing total cholesterol 208, LDL 126, Triglycerides 239 -Will be discharged on Olmesartan 20 mg Parkinson's Disease -Patient states diagnosed about 10 years ago -Recommend neurologist establishment as outpatient -PT recommending discharge home once medically stable without home or outpatient physical therapy -Awaiting OT recommendations Elevated liver enzymes - 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 hepatic steatosis, pt is a non-drinker, and underlying hypertension, hypercholesteremia, and DM2 - AST 76/ALT 90/Alk Phos 124 elevated with normal bilirubin and normal CK and lipase - CT abd/pelvis with normal biliary duct - 8 liver calcifications noted - Anaplasmosis negative - Follow-up LFTs as outpatient Subclinical hypothyroidism - TSH 5.5, Free T4 normal - No symptoms of hypothyroidism - Continue to monitor as outpatient Hx of Colon Cancer -History of with colostomy- ~ 17 years ago -Has not had any follow up or screenings completed -Recommend outpatient follow-up with colonoscopy screening Enlarged Prostate -Noted on CT pelvis, "Mild asymmetric left lateral bladder wall thickening. This could be correlated with urinalysis and urine cytology" - No dysuria, symptoms of BPH - PSA pending - Urine cytology as above, urinalysis normal - Recommend follow-up as outpatient Diet: Carb consistent Dispo: Med/Surg with tele DVT Prophylaxis: Apixiban Code Status: DNR/DNI (2) Elevated random blood glucose level: (3) Sinus tachycardia: (4) Hypertension: (5) Parkinson disease: (6) Bilateral numbness and tingling of arms and legs: (7) Elevated liver enzymes: (8) Colon cancer: (9) Enlarged prostate: Admission and Anticipated Discharge Date Admission Date: November 12, 2021 Supervising Physician Co-Signing Physician Notes Please see separate discharge summary by Dr. Vasquez. John Higgins is feeling well this morning. He feels that his heart rate is down now that he's more calm- he explained that he gets worked up and anxious about going to the doctors so he thinks that's why his heart rate was so fast yesterday. His numbness and burning in his feet/fingers is about the same. He understands that his sugars were high and did note that he has about 1 galloon of sweetened ice tea everyday and has a sweet tooth- he often eats cakes and pies. Denies any dizziness, lightheadedness, chest pain, sob, wheezing, abdominal pain. Review of Systems Review of Systems: REVIEW OF SYSTEMS: Constitutional: No fever, sweats or chills Eyes: No diplopia, no worsening or blurred vision ENT: (+) right ear pain, normal hearing, no trouble swallowing Respiratory: No cough, sputum, dyspnea at rest or on exertion Cardiovascular: No chest pain, tightness or palpitations Abdomen: No pain, nausea, vomiting, diarrhea or constipation Musculoskeletal: (+) bilateral feet burning and weakness, leg cramps, joint pain, calf pain, swelling Neurologic:(+) tingling to right first 3 fingertips, No weakness, numbness/tingling, or balance problems Psychiatric: No anxiety or depression Skin: No rash or itch Physical Exam Physical Exam: PHYSICAL EXAM: General: awake, alert, no apparent distress Head: Normocephalic, atraumatic ENT: PERRL, EOMI, no pharyngeal exudate, mucous membranes moist Neuro: AAO x 3, speech clear and appropriate, strength intact bilaterally 5/5, sensation intact and equal all extremities and dermatomes, no pronator drift, slight tremor of right hand Chest: equal rise and fall of the chest, no accessory muscle use, no heaves or thrills, Clear to auscultation, on room air, Cardiac: Regular rate and rhythm, telemetry reviewed- sinus tachycardia, skin warm dry, cap refill <3 seconds, peripheral pulses +2, no murmur, no edema GI: NABS, soft, nontender to palpation, colostomy, no rebound, guarding or tenderness : Spontaneously voiding, no pain, no CVA tenderness Extremities: Normal inspection, no peripheral edema or erythema, calfs nontender to palpation, but pain with walking and cramping Neuro: Normal sensation to the fingers and toes. Motor strength +5/5 bilaterally UE & LE. Reflexes +2/4 bilaterally biceps, triceps, patellar. Psych: Normal mood and affect Skin: no rash or erythema Results & Data Results & Data ([place]) Vital Signs (Past 12 Hours) Vital Signs Temp Pulse Pulse Resp BP Pulse Ox 11/13/21 07:39 36.6 C 91 H 16 142/83 H 97 11/13/21 07:33 81 11/13/21 03:15 36.7 C 75 18 119/74 98 (1) Pulmonary embolism Acute cor pulmonale presence: unspecified Chronicity: chronic Pulmonary embolism type: unspecified Qualified Code(s): I27.82 - Chronic pulmonary embolism (2) Hypertension Hypertension type: unspecified Qualified Code(s): I10 - Essential (primary) hypertension
--- NOTE | 2021-11-13 17:37 | XCELERA ---
[id number]
--- NOTE | 2021-11-13 17:57 | Electrocardiogram Report ---
Test Reason : Blood Pressure : / mmHG Vent. Rate : 121 BPM Atrial Rate : 121 BPM P-R Int : 178 ms QRS Dur : 080 ms QT Int : 296 ms P-R-T Axes : 022 -16 037 degrees QTc Int : 420 ms Sinus tachycardia Minimal voltage criteria for LVH, may be normal variant Nonspecific ST abnormality Borderline ECG No previous ECGs available Confirmed by Edwin Collier [id number]) on 11/13/2021 5:57:02 PM Referred By: REFERRED SELF Confirmed By:Sarkis Collier
--- NOTE | 2021-11-13 18:08 | Discharge Summary ---
Date of Service November 13, 2021 Admission HPI Per Admitting Provider 76 YOM with past medical history of: Colon Cancer with colostomy -17 years ago, Parkinson's disease. Patient moved to the area to retire and go fishing. He has not set up any PCP care. He comes in to the EMD today for complaints of burning to the soles of his feet, and difficulty with walking, and tingling in his finger tips. In the EMD he was noted to be hypertensive and tachycardic and with his history of colon cancer and above symptoms the patient had CTA of the chest performed, CT abdomen and pelvis, CXR, routine blood work done. He was incidentally found to have filling defect right pulmonary artery with chronic PE, and elevated LFTs as well as elevated glucose. The patient denies any history of chest pain or difficulty breathing. His feet pain have been ongoing for the past 4 weeks with not resolution and also noting increase in cramping pain in his calves. He reports that he used to be on some medication for his Parkinson's disease but hasn't been on it in years. [facility] He also reports that he used to be on blood pressure medication but also can't remember what that is. He does not remember the last time he followed up with GI and reports never having a EGD. Patient will be admitted to start his overall general medical care as well as find a PCP and Neurologist. COVID test on admission is: NEGATIVE Principal Diagnosis Type 2 diabetes mellitus, chronic pulmonary embolism, diabetic neuropathy. Discharge Exam Constitutional WD/WN, vitals as above Eyes + anicteric sclerae Neck trachea midline, no thyromegaly Respiratory normal respiratory effort, lungs clear to auscultation Cardiovascular RRR, no murmur, no edema Gastrointestinal (Abdomen) Percussion/Palpation: abdomen soft; abdomen nontender Colostomy with bag present Musculoskeletal Head/Neck/Chest: normocephalic and head atraumatic Extremities: strength 5/5 throughout Skin no rashes, warm and dry Neurologic Motor/Sensory: + tremor Psychiatric A+Ox3, euthymic affect Discharge Data Allergies Allergy/AdvReac Type Severity Reaction Status Date / Time No Known Allergies Allergy Unverified 11/12/21 17:20 Consultations 11/12/21 18:44 ED Decision to Admit Stat Ordered Studies 11/12/21 16:56 CT abd pelvis IV con only Stat CT angio chest PE protocol Stat CT cervical spine wo con Stat CT head/brain wo con Stat 11/12/21 19:24 US venous doppler LE BI Routine Hospital Course (1) Pulmonary embolism: 76 yo M with a PMH of colon cancer s/p colostomy and Parkinson's with no routine medical care who presented with 4 weeks of burning in his hands and feet, hypertension, and tachycardia, incidentally found to have a chronic pulmonary emboli and new diagnosis of DM2. Diabetes -On arrival to the ED, POC glucose was 306 -Started on sliding scale insulin with Aspart - A1C 10.7% - Ideally patient should be placed on long-acting insulin, however, patient unable to inject himself safely with tremor secondary to Parkinson's - Consult placed with Room Attendants - On discharge, start new diabetes regimen - Start Metformin 500mg BID - Start Olmarsartan 20 mg daily - Start Atorvastatin 40 mg daily - Start Pregabalin 75 mg BID -Follow-up with Dr. Crook within 1 week of discharge Chronic PE - On Chest CTA in the ED, noted filling defect likely chronic PE- patient unsure of when this would have occurred - CT Chest without any enlarged lymph nodes, nodules, or masses - Hypercoag panel pending although without family hx and age - Venous duplex of LE revealed no acute DVT - Started on Apixaban 10 mg PO in the ED x1 then BID daily - Recommend 7 days of Apixiban 10 mg PO BID, then 3 months of 5 mg PO BID Bilateral burning of feet and fingers -Highly suspect diabetic neuropathy secondary to uncontrolled diabetes (A1C 10.7%) -Initial etiologies included- lyme, diabetic neuropathy, polyneuropathy, b12 deficiency, copper deficiency (takes zinc supplementation), PVD/PAD all less likely given time course, physical exam, and underlying diabetes. -Lyme IgG antibody positive; bands pending -B12 normal -Copper level pending -Anti-cardiolipin IgM, IgG pending -PVD/PAD less likely given physical exam and doppler study -All other imaging negative for disc disease, SH[employer]OR lesions, demyelinating lesions -No back pain or weakness of the lower extremities -Recommend Pregabalin initiation for neuropathic symptoms at 75 mg BID Tachycardia resolved -Likely secondary to anxiety- declines with rest, has declined upon admission -Through out hospitalization, HR has hovered 75-90 Hypertension -Uncontrolled with unknown history -200/121 on arrival to the ED -Amlodopine 5mg PO initiated in ED and during hospital course -Lipid panel revealing total cholesterol 208, LDL 126, Triglycerides 239 -Will be discharged on Olmesartan 20 mg in addition to amlodipine 5 mg Parkinson's Disease -Patient states diagnosed about 10 years ago -Recommend neurologist establishment as outpatient -PT recommending discharge home once medically stable without home or outpatient physical therapy -OT recommendations not obtained prior to discharge Elevated liver enzymes - 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 hepatic steatosis, pt is a non-drinker, and underlying hypertension, hypercholesteremia, and DM2 - AST 76/ALT 90/Alk Phos 124 elevated with normal bilirubin and normal CK and lipase - CT abd/pelvis with normal biliary duct - 8 liver calcifications noted - Anaplasmosis negative - Follow-up LFTs as outpatient Subclinical hypothyroidism - TSH 5.5, Free T4 normal - No symptoms of hypothyroidism - Continue to monitor as outpatient Hx of Colon Cancer -History of with colostomy- ~ 17 years ago -Has not had any follow up or screenings completed -Recommend outpatient follow-up with colonoscopy screening Enlarged Prostate -Noted on CT pelvis, "Mild asymmetric left lateral bladder wall thickening. This could be correlated with urinalysis and urine cytology" - No dysuria, symptoms of BPH - PSA pending, follow-up in outpatient setting - Urine cytology as above, urinalysis normal Diet: Carb consistent Dispo: Discharge home with close follow-up DVT Prophylaxis: Apixiban Code Status: DNR/DNI (2) Elevated random blood glucose level: (3) Sinus tachycardia: (4) Hypertension: (5) Parkinson disease: (6) Bilateral numbness and tingling of arms and legs: (7) Elevated liver enzymes: (8) Colon cancer: (9) Enlarged prostate: Total Time Total Time Spent Total Time Spent (In Minutes): 30 Discharge Plan Discharge Items Patient Disposition: Home - Self-Care Reason For Visit: INCIDENTAL PE FINDING, LEG WEAKNESS Discharge Diagnosis: Type 2 diabetes, diabetic neuropathy, chronic pulmonary embolism Activity: Per Instructions section Non-emergency contact: Primary Care Provider Call non-emergency contact if: you have any medication questions and your symptoms worsen Follow-up/Referrals: Aimee Crook MD [Resident] - PCP,NO [Primary Care Provider] - Diet: Carb Consistent or DM2 Addtl Attending Provider Instructions: You were seen in the hospital for multiple concerns but especially in relation to the tingling sensation that you are feeling in your hands and feet. While you are here you were evaluated in the emergency room and our hospitalist team who diagnosed you with the following problems with correlating treatments: Type 2 diabetes mellitus It was found that your A1c was 10.7 which means that your sugars have been elevated for quite some time. Type 2 diabetes puts you at higher risk for cardiovascular disease and stroke which is why it is important for us to get your sugars under control to reduce these risks. At this time we are starting you on metformin, a medication to help make your body more sensitive to insulin, at 500 mg twice a day. You will likely need additional medications with time and this will be addressed further at your follow-up appointment with Dr. Crook in the next week. This appointment will be made for you. Diabetic neuropathy Because of your elevated blood sugars and your tingling sensation in your hands and feet being present for a long period of time, your tingling sensation is likely secondary to a disorder called diabetic neuropathy. This is when the sugar in your blood damages the very fine nerves that are found at the tips of the fingers and toes. We are sending you a medication to the pharmacy called pregabalin (the brand name is Lyrica) which should help improve your symptoms with time. The dose of this medication is 75 mg twice a day Hypertension(elevated blood pressure) While you are hospitalized it was found your blood pressure was elevated and you need to be started on blood pressure medications to again reduce your cardiovascular and stroke risk. At this time we started you on 2 blood pressure medications, olmesartan and amlodipine. We combine both of these medications into 1 pill that you only need to take once a day at night. Hyperlipidemia (high cholesterol) A lipid panel was done which looked at your cholesterol levels and it was found that your cholesterol levels are high most likely secondary to your type 2 diabetes in your diet. To help reduce your risk of heart attack and stroke you will be put on atorvastatin 40 mg once a day at night. Chronic pulmonary embolism Incidentally found on a chest CT as a pulmonary embolism that is likely been there for a long time. To make sure that this is treated appropriately, you will be sent with a blood thinner called Eliquis that you will take 10 mg twice a day for 1 week and then 5 mg twice a day for 3 months. In the meantime there is a work-up being done as to why you had a blood clot in the first place and the results of this work-up will be discussed with you at future appointments when the results return. In addition to the problems listed above, your new primary care provider will go over your other chronic medical conditions such as your Parkinson's disease to jennifer ohe sure that you are on an ideal regimen so that you are not limited by your disease. It is important that you take all the medications as above as this will overall reduce your risk of having a heart attack, stroke, or worsening neuropathy. Is been a pleasure to be a part of your care and I look forward to being your primary care provider in the outpatient setting. Pending Studies at Discharge: Yes Studies:: Hypercoagulability work-up Stand-Alone Forms: My [facility], Smoking Cessation Medications and DC Order Prescriptions: New Eliquis 5 mg Tablet 10 mg PO BID 7 Days Qty: 28 RF: 0 Eliquis 5 mg tablet 5 mg PO BID Qty: 90 RF: 1 amlodipine-olmesartan 5-20 mg tablet 1 tab PO DAILY Qty: 30 RF: 2 atorvastatin 40 mg tablet 40 mg PO HS Qty: 30 RF: 2 pregabalin 75 mg capsule 75 mg PO BID Qty: 60 RF: 2 metformin 500 mg tablet 500 mg PO BID Qty: 60 RF: 2 pregabalin [Lyrica] 75 mg capsule 75 mg PO BID 30 Days Qty: 60 RF: 0 Continued multivitamin [Multiple Vitamins] Tablet 1 tab PO DAILY RF: 0 zinc gluconate 100 mg Tablet 200 mg PO DAILY RF: 0 Discharge Orders: Discharge Order (Routine); Ordered 11/13/21 Ordered By: Cale Underwood/Other Patient Handouts: Managing Type 2 Diabetes, Embolism Pulmonary Dc, Diabetic Neuropathy Admission Data Admit Date/Time: 11/12/21 19:35 Attending Provider: Juan Hinojosa Admit Provider: Toan Henry Primary Care Provider: PCP,NO Other Providers: Toan Henry Other Interventions: Discharge Summary Assessment (RN) Last Done: 11/13/21 18:10 Supervising Physician Co-Signing Physician Notes Patient seen and examined with medical student Maida Aviles and PGY-1 Dr. Vasquez. Agree with history, exam findings, assessment and plan of care as outlined. In brief, Mr. Stubbs is a 76 year old male with history of Parkinsons disease, hypertension, colon cancer s/p partial colectomy admitted with hypertension, tachycardia and concern for new diabetes and newly discovered chronic PE in the right pulmonary artery. Today, he feels well, although still has a burning sensation in the hands and feet. No chest pain or dyspnea. VS and nursing notes reviewed. Non-toxic appearing. Flat affect. Heart with regular rate and rhythm. Lungs are clear to auscultation throughout. Labs and imaging reviewed. 1. Polyneuropathy. Likely secondary to diabetes. But could consider additional causes as an outpatient. Start Lyrica 75mg BID as this will be helpful for both polyneuropathy and underlying anxiety. 2. Chronic right pulmonary artery PE. No right heart strain on TTE. EF persevered. Mild concentric LV hypertrophy. AC with Apixaban. 3. Diabetes, new diagnosis. A1C 10.7%. Start metformin. Defer insulin for right now. May benefit for SGLT2 as an outpatient. 4. Sinus tachycardia. Intermittent. Unlikely to be secondary to PE. Seems to have some underlying anxiety as well. 5. HTN. Started on amlodipine 5mg. Pressures still elevated. Add Olmesartan 20mg. Will discharge on combination pill amlodipine 5mg-olmesartan 20mg. 6. Elevated liver tests. Positive Lyme IgG. Awaiting bands. 7. Enlarged prostate. PSA pending. 8. Subclinical hypothyroid. TSH 5.6 and free T4 0.87. 9. Hx of colon cancer. Needs a scope as an outpatient as it has been year since he had follow up for this. Dispo: discharge home today. Close follow up with new PCP (TERRELL LEWIS @ [facility]). I personally spent 35 minutes discharge planning for this patient.
--- NOTE | 2021-11-13 18:09 | Electrocardiogram Report ---
Test Reason : Blood Pressure : / mmHG Vent. Rate : 092 BPM Atrial Rate : 092 BPM P-R Int : 162 ms QRS Dur : 086 ms QT Int : 368 ms P-R-T Axes : 023 -03 -20 degrees QTc Int : 455 ms Normal sinus rhythm Normal ECG When compared with ECG of 12-NOV-2021 15:28, (unconfirmed) Inverted T waves have replaced nonspecific T wave abnormality in Inferior leads Confirmed by Edwin Collier ([id number]) on 11/13/2021 6:09:29 PM Referred By: REFERRED SELF Confirmed By:Sarkis Collier
[2021-11-17 13:01] LABS: 18KDIGG Band REACTIVE; 23KDIGG Band NON-REACTIVE; 23KDIGM Band NON-REACTIVE; 28KDIGG Band NON-REACTIVE; 30KDIGG Band NON-REACTIVE; 39KDIGG Band REACTIVE; 39KDIGM Band NON-REACTIVE; 41KDIGG Band REACTIVE; 41KDIGM Band NON-REACTIVE; 45KDIGG Band NON-REACTIVE; 58KDIGG Band REACTIVE; 66KDIGG Band REACTIVE; 93KDIGG Band NON-REACTIVE; Lyme Antibodies, WB IgG POSITIVE (NEGATIVE); Lyme Antibodies, WB IgM NEGATIVE (NEGATIVE)
[2021-11-20 05:03] LABS: Anti Cardiolipin Ab IgG <2.0 GPL-U/mL; Anti Cardiolipin Ab IgM <2.0 MPL-U/mL; Anti-Thrombin III Activity 82 % normal (80-135); B2 Glycoprotein IgG <2.0 U/mL (<20.0); Protein S Functional(Activity) 83 % (70-150)
[2021-11-21 02:36] LABS: Factor 5 Mutation NEGATIVE
== END 2021-11-13 18:45 | disposition home or self-care (01) | DRG 74 ==
LOC: ED 14:23 → INTOOBSV 19:35 → SUATTDRO 19:35 → 2N 19:35